=== PATIENT | male | born 1960 | race Caucasian/White ===

== ENCOUNTER → 2022-01-04 12:07 | Outpatient (CLI) | payer OTHER, SELFPAY ==
[2022-01-04 20:04] LABS: HEMOLYSIS < 15 (0-50)
[2022-01-04 20:06] LABS: Hemoglobin 12.8 g/dL (13.5-17.5); Mean Corpuscular HGB Conc 33.7 % (30-36); Mean Corpuscular Hemoglobin 28.6 PG (26-34); Mean Corpuscular Volume 84.8 fL (80-100); Platelet Count 340 X10^3/uL (150-400); Red Blood Cell Count 4.48 X10^6/uL (4.5-5.9); Red Cell Distribution Width 13.8 % (11.6-14.8); White Blood Cell Count 8.2 X10^3/uL (4.5-11.0)
[2022-01-04 20:11] LABS: Alanine Aminotransferase 22 IU/L (<50); Albumin 4.2 g/dL (3.5-5.0); Albumin Globulin Ratio 1.3 (1.0-2.8); Alkaline Phosphatase 77 U/L (38-126); Aspartate Aminotransferase 33 IU/L (17-59); BUN Creatinine Ratio 27.1 (6-22); Bilirubin Total 0.7 mg/dL (0.2-1.3); Blood Urea Nitrogen 19 mg/dL (9-20); Calcium 9.6 mg/dL (8.4-10.2); Carbon Dioxide 27 mmol/L (22-32); Chloride 102 mmol/L (98-107); Estimated Glomerular Filt Rate > 60 mL/min (>60); Globulin 3.3 g/dL (1.7-4.1); Glucose 87 mg/dL (80-110); Potassium 4.2 mmol/L (3.4-5.1); Sodium 139 mmol/L (137-145); Total Protein 7.5 g/dL (6.3-8.2)
[2022-01-04 20:35] LABS: Neutrophils Absolute Manual 5740 /uL (3000-5900); RBC Morphology Normal Morphology; Total Cells Counted 100
[2022-01-06 03:47] LABS: Free T4, Direct Thyroxine 1.14 ng/dL (0.78-2.19)
[2022-01-06 04:19] LABS: Vitamin B12 992 pg/mL (239-931)
[2022-01-06 05:52] LABS: Hemoglobin A1C% w Est Avg Glu 5.2 % (4.0-6.0)
== END ==
PROVIDERS: PCP Family Medicine; Visit Provider Family Medicine
DX: I10 Essential (primary) hypertension (principal); I83.029 Varicose veins of left lower extremity with ulcer of unspecified site; I83.892 Varicose veins of left lower extremity with other complications; I83.893 Varicose veins of bilateral lower extremities with other complications; L03.116 Cellulitis of left lower limb; L97.929 Non-pressure chronic ulcer of unspecified part of left lower leg with unspecified severity; R60.9 Edema, unspecified
CPT/HCPCS: 80053; 82607; 83036; 84439; 85025